=== PATIENT | male | born 1960 | race Caucasian/White ===

== ENCOUNTER 2018-05-05 08:18 | Emergency (ER) | payer SELFPAY ==
[2018-05-05 08:46] LABS: Hematocrit 42 % (42-52); Hemoglobin 14.6 g/dl (14.0-18.0); Mean Corpuscular HGB Conc 34 g/dl (31-36); Mean Corpuscular Hemoglobin 31 pg (27-31); Mean Corpuscular Volume 89 fL (80-94); Mean Platelet Volume 7.8 fL (7.4-10.4); Platelet Count 329 10^3/ul (150-450); Red Blood Count 4.78 10^6/ul (4.00-5.40); Red Cell Distribution Width 13 % (10.5-15); White Blood Count 9.5 10^3/ul (3.5-10.8)
[2018-05-05 09:05] LABS: Albumin 4.4 g/dL (3.2-5.2); Albumin/Globulin Ratio 1.8 (1-3); BUN/Creatinine Ratio 10.2 (8-20); Calcium 9.5 mg/dL (8.6-10.3); EGFR African American 107.3 (>60); EGFR Non-African American 88.6 (>60); Globulin 2.5 g/dL (2-4); Potassium 3.5 mmol/L (3.5-5.0); Total Bilirubin 1.2 mg/dL (0.2-1.0); Total Protein 6.9 g/dL (6.4-8.9)
[2018-05-05] MEDS ORDERED: Albuterol HFA INHALER* 8 gm MDI INH ONE (09:58)
--- NOTE | 2018-05-05 10:01 | ED ---
Shortness of Breath - HPI Summary HPI Summary: Patient is a 57-year-old male presenting to the ED with a chief complaint of SOB 10 days. He denies any health history. He takes no medications. Last PCP checkup was approximately 30 years ago per patient. He states he exercises frequently and regularly and has never had this problem before. Denies any allergies. Patient states he feels he may have "black mold" in his home which have been contributory to his symptoms. He states he has not cleaned his house in a long time and is not washed his sheets or blankets for approximately 1 year. He is concerned with black mold on his lungs. He states he has looked up symptoms and this could be the cause of why he is having SOB. Denies recent illness, endorses cough which has improved since last week. Influenza vaccination up-to-date. Symptoms are worse with lying flat, better with sitting upright. Not worse or better with [id number] Sudafed. He states he feels he can't take a big deep breath, but continues to breathe well. Symptoms are not aggravated by exertion and not better with rest. - History of Current Complaint Chief Complaint: EDShortnessOfBreath Time Seen by Provider: 05/05/18 08:24 Hx Obtained From: Patient Onset/Duration: Sudden Onset Timing: Constant Current Severity: Mild Dyspnea At: Rest Aggrevating Factors: Allergens Alleviating Factors: Nothing Associated Signs & Symptoms: Negative - Risk Factors Pulmonary Embolism: Negative Cardiac: Negative Pseudomonas: Negative Tuberculosis: Negative - Allergy/Home Medications Allergies/Adverse Reactions: Allergies Allergy/AdvReac Type Severity Reaction Status Date / Time No Known Allergies Allergy Verified 05/05/18 08:23 Home Medications: Home Medications NK [No Home Medications Reported] 05/05/18 [History Confirmed 05/05/18] PMH/Surg Hx/FS Hx/Imm Hx Previously Healthy: Yes - Immunization History Hx Pertussis Vaccination: No Immunizations Up to Date: Yes Infectious Disease History: No Infectious Disease History: Denies: Traveled Outside the [place] in Last 30 Days - Social History Occupation: Unemployed Lives: With Family Alcohol Use: unknown Hx Substance Use: Yes Substance Use Type: Reports: Marijuana Smoking Status (MU): Never Smoked Tobacco Review of Systems Constitutional: Negative Negative: Fever, Chills, Fatigue, Skin Diaphoresis Negative: Dental Pain Negative: Palpitations, Chest Pain Positive: Shortness Of Breath. Negative: Cough Negative: Abdominal Pain, Vomiting, Diarrhea, Nausea Genitourinary: Negative Positive: no symptoms reported, see HPI Negative: Arthralgia, Myalgia Skin: Negative All Other Systems Reviewed And Are Negative: Yes Physical Exam Triage Information Reviewed: Yes Vital Signs On Initial Exam: Initial Vitals Temp Pulse Resp BP Pulse Ox 98.9 F 102 20 175/102 97 05/05/18 08:20 05/05/18 08:20 05/05/18 08:20 05/05/18 08:20 05/05/18 08:20 Vital Signs Reviewed: Yes Appearance: Positive: Well-Appearing, Well-Nourished Skin: Positive: Warm, Skin Color Reflects Adequate Perfusion Head/Face: Positive: Normal Head/Face Inspection Eyes: Positive: EOMI, CHER, Conjunctiva Clear Neck: Positive: Supple, No Lymphadenopathy Respiratory/Lung Sounds: Positive: Clear to Auscultation, Breath Sounds Present Cardiovascular: Positive: RRR, Pulses are Symmetrical in both Upper and Lower Extremities. Negative: Leg Edema Left, Leg Edema Right Musculoskeletal: Positive: Normal, Strength/ROM Intact Neurological: Positive: Sensory/Motor Intact, Alert, Oriented to Person Place, Time Psychiatric: Positive: Normal, Affect/Mood Appropriate Diagnostics - Vital Signs Vital Signs Temp Pulse Resp BP Pulse Ox 05/05/18 08:31 98.4 F 18 05/05/18 08:29 102 96 05/05/18 08:20 98.9 F 102 20 175/102 97 - Laboratory Lab Results: Lab Results 05/05/18 05/05/18 05/05/18 Range/Units 08:39 08:39 08:39 WBC 9.5 (3.5-10.8) 10^3/ul RBC 4.78 (4.00-5.40) 10^6/ul Hgb 14.6 (14.0-18.0) g/dl Hct 42 (42-52) % MCV 89 (80-94) fL MCH 31 (27-31) pg MCHC 34 (31-36) g/dl RDW 13 (10.5-15) % Plt Count 329 (150-450) 10^3/ul MPV 7.8 (7.4-10.4) fL Sodium 133 L (135-145) mmol/L Potassium 3.5 (3.5-5.0) mmol/L Chloride 100 L (101-111) mmol/L Carbon Dioxide 21 L (22-32) mmol/L Anion Gap 12 H (2-11) mmol/L BUN 9 (6-24) mg/dL Creatinine 0.88 (0.67-1.17) mg/dL Est GFR ( Amer) 107.3 (>60) Est GFR (Non-Af Amer) 88.6 (>60) BUN/Creatinine Ratio 10.2 (8-20) Glucose 142 H (70-100) mg/dL Calcium 9.5 (8.6-10.3) mg/dL Total Bilirubin 1.20 H (0.2-1.0) mg/dL AST 22 (13-39) U/L ALT 19 (7-52) U/L Alkaline Phosphatase 60 (34-104) U/L Troponin I 0.00 (<0.04) ng/mL B-Natriuretic Peptide 27 (<=100) pg/mL Total Protein 6.9 (6.4-8.9) g/dL Albumin 4.4 (3.2-5.2) g/dL Globulin 2.5 (2-4) g/dL Albumin/Globulin Ratio 1.8 (1-3) Result Diagrams: 05/05/18 08:39 05/05/18 08:39 Lab Statement: Any lab studies that have been ordered have been reviewed, and results considered in the medical decision making process. Course/Dx - Course Course Of Treatment: On arrival into the ED, vital signs are stable and O2 sat is 98% on room air. Patient appears well, nontoxic and appearing and nondiaphoretic. He endorses SOB, worse with lying flat, better with sitting upright. Symptoms have been present 10 days, not improved with Sudafed. Labs obtained and are unremarkable including a troponin of 0.00 and a BNP of 27. EKG obtained which shows a normal sinus rhythm with a probable right atrial enlargement. Chest x-ray obtained which shows no abnormalities.He states he does not have a PCP and I have referred him to our care connections. I have discussed with patient at this time I am finding no source or cause of his shortness of breath. As he appears well and his vital signs are stable, he will follow-up with our PCP's and understands to return if he does have any worsening or changing symptoms. I've encouraged him to clean the house and wash his sheets as this may be related to allergies. He is given albuterol inahler in the ED. - Diagnoses Differential Diagnosis/HQI/PQRI: Positive: Asthma, Bronchitis Provider Diagnoses: Shortness of breath Discharge - Sign-Out/Discharge Documenting (check all that apply): Patient Departure Patient Received Moderate/Deep Sedation with Procedure: No - Discharge Plan Condition: Stable Disposition: HOME Patient Education Materials: Shortness of Breath (ED) Referrals: [facility] [Outside] No Primary Care Phys,NOPCP [Primary Care Provider] - Additional Instructions: Please follow up with [facility] They will be able to help you with referrals to cardiology or pulmonology if they feel you need close follow up for this. - Billing Disposition and Condition Condition: STABLE Disposition: Home
[2018-05-05 10:20] VITALS: BP 166/91
== END 2018-05-05 10:00 | disposition home or self-care (01) ==
LOC: ED 08:18
DX: R06.02 Shortness of breath (principal)
CPT/HCPCS: 36415; 71046; 80053; 83880; 84484; 85027; 93005; 99282; A9270-GY